=== PATIENT | male | born 1945 | race African-American/Black ===

== ENCOUNTER 2017-11-15 06:20 | Observation (INO) | payer MEDICARE ==
[2017-11-13 13:11] LABS: BASOPHILS % 0.5 % (0.0-1.0); EOSINOPHILS # (AUTO) 0.1 (0.0-0.4); EOSINOPHILS % 1.2 % (0.0-6.0); HEMATOCRIT 38.6 % (38.2-49.6); HEMOGLOBIN 12.9 g/dL (14.0-18.0); LYMPHOCYTES # (AUTO) 2.5 (1.0-3.2); LYMPHOCYTES % 38.5 % (18.0-39.1); MEAN CORPUSCULAR HGB CONC 33.4 g/dL (31-35); MEAN CORPUSCULAR VOLUME 86.7 fL (81-99); MONOCYTES # (AUTO) 0.6 (0.2-0.8); MONOCYTES % 8.9 % (4.4-11.3); NEUTROPHILS # (AUTO) 3.3 (2.1-6.9); NEUTROPHILS % 50.7 % (38.7-80.0); PLATELET COUNT 224 x10e3/uL (140-360); RED BLOOD COUNT 4.45 x10e6/uL (4.3-5.7); RED CELL DISTRIBUTION WIDTH 13.2 % (11.7-14.4)
[2017-11-13 13:25] LABS: INR 1.08; PROTHROMBIN TIME 13.2 seconds (11.9-14.5)
[2017-11-13 13:26] LABS: PARTIAL THROMBOPLASTIN TIME 30.6 seconds (23.8-35.5)
[2017-11-13 13:32] LABS: ANION GAP 13.9 mmol/L (8-16); BLOOD UREA NITROGEN 11 mg/dL (7-26); BUN/CREATININE RATIO 15 (6-25); CALCIUM 9.1 mg/dL (8.4-10.2); CARBON DIOXIDE 27 mmol/L (22-29); CHLORIDE 100 mmol/L (98-107); CREATININE, SERUM 0.71 mg/dL (0.72-1.25); EST GLOMERULAR FILTRATION RATE > 60 ML/MIN (60-); GLUCOSE 118 mg/dL (74-118); POTASSIUM 3.9 mmol/L (3.5-5.1); SODIUM 137 mmol/L (136-145)
--- NOTE | 2017-11-13 13:42 | Diagnostic Imaging Report ---
PROCEDURE:CHEST 2 VIEWS TECHNIQUE:PA and lateral chest INDICATION:Preoperative evaluation for lumbar spine surgery COMPARISON:None. FINDINGS: The lungs are inflated. No pleural effusion. Normal heart size and central vasculature. Mildly tortuous thoracic aorta. Intact skeleton. CONCLUSION: No acute abnormality. Dictated by: Abraham Zapata M.D. on 11/13/2017 at 13:45 Electronically approved by: Abraham Zapata M.D. on 11/13/2017 at 13:45
[~2017-11-15] VITALS: Ht 177.8 cm; Wt 78.1 kg
[~2017-11-15 06:20] MED LIST: ALFUZOSIN HCL10 MG PO; ATORVASTATIN CA40 MG PO; LISINOPRIL10 MG PO; METFORMIN HCL1000 MG PO
--- OUTSIDE RECORDS SUMMARY | 2017-11-15 06:23 | XMS REPORT ---
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 Allergies, Adverse Reactions, Alerts This patient has no known allergies or adverse reactions. Medications This patient has no known medications. Results Test Description Test Time Test Comments Text Results Atomic Results Result Comments CHEST 2 VIEWS [place] [address] Patient Name: KRISHNA FELIX MR #: [id number] : 1945 Age/Sex: 72/M Req #: [id number] Adm Physician: Ordered by: СВЕТЛАНА ARANA MD Report #: [id number] Location: OR Room/Bed: Procedure: [id number] DX/CHEST 2 VIEWS Exam Date: 11/13/17 Exam Time: 1313 REPORT STATUS: Signed PROCEDURE: CHEST 2 VIEWS TECHNIQUE: PA and lateral chest INDICATION: Preoperative evaluation for lumbar spine surgery COMPARISON: None. FINDINGS: The lungs are inflated. No pleural effusion. Normal heart size and central vasculature. Mildly tortuous thoracic aorta. Intact skeleton. CONCLUSION: No acute abnormality. Dictated by: Harvey Zapata M.D. on 11/13/2017 at 13:45 Electronically approved by: Harvey Zapata M.D. on 11/13/2017 at 13: 45 Dictated By: HARVEY ZAPATA MD [id number] Transcribed By: RENATO on 11/13/17 1342 COPY TO: СВЕТЛАНА ARANA MD
[2017-11-15] MEDS ORDERED: THROMBIN FOR SOLN 5,000 UNIT VIAL ONE (06:38)
[2017-11-15] MEDS ORDERED: GELATIN SPONGE SZ 100 ONE (06:38)
[2017-11-15] MEDS ORDERED: BACITRACIN 50,000 UNIT VIAL ONE (06:38)
[2017-11-15] MEDS ORDERED: BUPIVACAINE 0.5%/EPI 30 ML SDV INJ ONE (06:38)
[2017-11-15] MEDS ORDERED: ACETAMINOPHEN 1000 MG/100 ML 100 ML IV ONE (06:44)
[2017-11-15] MEDS ORDERED: LIDOCAINE HCL (LTA) 4 ML SOLN ONE (06:44)
[2017-11-15] MEDS ORDERED: CEFAZOLIN SOD 1 GM VIAL ONE (07:03)
[2017-11-15] MEDS ORDERED: ONDANSETRON HCL INJ 2 MG/ML VIAL IV PRN (10:15)
[2017-11-15] MEDS ORDERED: ACETAMINOPHEN 325 MG TAB PO PRN (10:15)
[2017-11-15] MEDS ORDERED: HYDROMORPHONE 2MG/ML INJ IV PRN (10:15)
[2017-11-15] MEDS ORDERED: MORPHINE SULFATE 5 MG/ML VIAL IM PRN (10:15)
[2017-11-15] MEDS ORDERED: OXYCODONE/ACETAMINOPHEN 5-325 1 EACH TABLET PO PRN (10:15)
[2017-11-15] MEDS ORDERED: CEPACOL SORE THROAT LOZENGES PO PRN (10:15)
[2017-11-15] MEDS ORDERED: PROMETHAZINE HCL (IM) 25 MG/ML VIAL IM PRN (10:15)
[2017-11-15] MEDS ORDERED: CARISOPRODOL 350 MG TAB PO PRN (10:15)
[2017-11-15] MEDS ORDERED: MAGNESIUM/ALUMINUM/SIMETHICONE 30 ML UDC PO PRN (10:15)
[2017-11-15] MEDS: LACTATED RINGER'S 1,000 ML IV SCH ×2 (11:23→17:20)
[2017-11-15 11:35] VITALS: BP 122/69
[2017-11-15 12:07] VITALS: BP 122/69
--- NOTE | 2017-11-15 12:21 | Operative Report ---
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 PROCEDURES: Right L4-5 laminotomy, medial facetectomy, microsurgical lateral recess decompression, and microsurgical diskectomy, [id number]. ANESTHESIA: General. INDICATIONS: The patient is a 72-year-old man who presents with right L4-5 lateral recess stenosis due to facet and ligamentous hypertrophy and a broad-based chronic disk herniation symptomatic with L5 radiculopathy and unilateral neurogenic claudication. The patient was taken to the operating room for microsurgical lateral recess decompression. PROCEDURE: After the induction of general anesthesia, the patient was placed on the operating table in prone position over a Jeff frame. The lumbar region was prepped and draped in sterile fashion. A preoperative x-ray was obtained, and a small midline incision was created. The lumbar fascia was opened to the right of midline, and a subperiosteal dissection was carried out to expose the right side of the L4 and L5 laminae and the medial aspect of the facet joint. A 2nd x-ray confirmed correct localization. The operating microscope was brought in. A high-speed drill equipped with a francisco bur was used to drill the inferior aspect of the lamina of L4, the medial aspect of the L4-5 facet joint and the superior rim of the lamina of L5. The ligamentum flavum was resected. The ligamentum flavum was markedly hypertrophic and was compressing the L5 nerve root against the subligamentous disk herniation. After the ligamentum flavum was resected, the L5 nerve root was retracted medially and the annulus of the disk was incised with a number 11 blade. The subligamentous disk herniation was retrieved and removed with a micro ball probe. The loose contents of the L4-5 disk were evacuated with curettes and pituitary rongeurs. Excellent decompression was thus achieved. The wound was irrigated with Bacitracin solution. Meticulous hemostasis was secured. The retractor was removed. The lumbar fascia was closed with 0 Vicryl sutures. Subcutaneous layer was closed with 2-0 Vicryl sutures. The skin was closed with 3-0 Monocryl sutures in subcuticular fashion. Steri-Strips and a dressing were applied. The patient was awakened, extubated and taken to the postanesthesia care unit in stable condition. No intraoperative complications were encountered. Estimated blood loss 10 mL. Job#: [id number] EV
[2017-11-15 13:43] VITALS: BP 122/69
[2017-11-15] MEDS ORDERED: CEFAZOLIN SOD 1 GM/NS 50ML 50 ML IV SCH (14:00)
[2017-11-15 15:23] VITALS: BP 126/69
[2017-11-15] MEDS: CEFAZOLIN SOD 1 GM VIAL IV SCH (16:36)
[2017-11-15] MEDS ORDERED: SEVOFLURANE INHAL SOLN 250 ML PEN BTL ONE (18:01)
[2017-11-15] MEDS ORDERED: DEXAMETHASONE SOD PHOS INJ 4 MG/ML VIAL ONE (18:01)
[2017-11-15] MEDS ORDERED: LIDOCAINE HCL 2% LOCAL INJ 5 ML SDV VIAL INJ ONE (18:01)
[2017-11-15] MEDS ORDERED: PROPOFOL IV EMULSION 10 MG/ML 20 ML VIAL ONE (18:01)
[2017-11-15] MEDS ORDERED: ROCURONIUM BROMIDE 10 MG/ML 5ML VIAL ONE (18:01)
[2017-11-15] MEDS ORDERED: EPHEDRINE SULFATE INJ 50 MG/10 ML SYR ONE (18:01)
[2017-11-15] MEDS ORDERED: LIDOCAINE HCL 2% JELLY 5 ML TUBE ONE (18:01)
[2017-11-15] MEDS ORDERED: ONDANSETRON HCL INJ 2 MG/ML VIAL ONE (18:01)
[2017-11-15] MEDS ORDERED: MIDAZOLAM HCL 2 MG/2 ML VIAL ONE (18:25)
[2017-11-15] MEDS ORDERED: FENTANYL CITRATE/PF 100MCG/2 ML INJ ONE (18:25)
[2017-11-15 20:00] VITALS: BP 125/62
[2017-11-15] MEDS ORDERED: METFORMIN HCL 500 MG TAB PO SCH (21:00)
[2017-11-15] MEDS ORDERED: ATORVASTATIN 40 MG TAB PO SCH (21:00)
[2017-11-15] MEDS ORDERED: ZOLPIDEM TARTRATE 5 MG TAB PO PRN (21:00)
[2017-11-16] VITALS: BP 104/61
[2017-11-16] MEDS: CEFAZOLIN SOD 1 GM VIAL IV SCH ×2 (00:28→08:54)
[2017-11-16] MEDS: LACTATED RINGER'S 1,000 ML IV SCH (02:46)
[2017-11-16 04:00] VITALS: BP 136/75
[2017-11-16 08:00] VITALS: BP 119/70
[2017-11-16] MEDS ORDERED: METFORMIN HCL 500 MG TAB PO SCH (08:00)
[2017-11-16] MEDS ORDERED: ALFUZOSIN HCL 10 MG PO SCH (09:00)
[2017-11-16] MEDS ORDERED: NON-FORMULARY MEDICATION (Atorvastatin Calcium 40 MG) PO SCH (09:00)
[2017-11-16] MEDS ORDERED: NON-FORMULARY MEDICATION (Metformin Hcl 1,000 MG) PO SCH (09:00)
[2017-11-16] MEDS ORDERED: LISINOPRIL 10 MG TAB PO SCH (09:00)
== END 2017-11-16 09:22 | disposition home or self-care (01) ==
LOC: OR 06:20 → IMCU 10:30
PROVIDERS: ADMIT Neurological Surgery; ATTEND Neurological Surgery
DX: M48.062 Spinal stenosis, lumbar region with neurogenic claudication (principal); M54.16 Radiculopathy, lumbar region; I10 Essential (primary) hypertension; E78.5 Hyperlipidemia, unspecified
CPT/HCPCS: 36415 ×3; 63047; 71046; 72020; 80048; 82948 ×2; 85025; 85610; 85730; 86850; 86900; 88304; 93005; G0378 ×2; J0690 ×2; J1100; J2001 ×2; J2250; J2405; J2270

== ENCOUNTER → 2018-08-19 | Outpatient (CLI) | payer MEDICARE ==
--- NOTE | 2018-08-19 16:20 | Diagnostic Imaging Report ---
RIGHT SHOULDER - 2 Images HISTORY: Pain COMPARISON: None available. FINDINGS: Bones: No acute displaced fracture. A 1 x 0.2 cm calcific density projects adjacent to the superior glenoid. Joints: Mild widening of the acromial clavicular joint, 1.1 cm. Soft tissues: The soft tissues appear unremarkable. IMPRESSION: 1. Age-indeterminate widening of the acromioclavicular joint, correlate for focal point tenderness and for history of trauma. 2. Chronic appearing small avulsion fracture projects adjacent to the superior glenoid. Signed by: Dr. Viktor Wood D.O., M.M.M. on 08/19/2018 4:16 PM
== END ==
LOC: RAD 15:23
DX: M25.511 Pain in right shoulder (principal)

== ENCOUNTER 2024-03-27 09:51 | Inpatient (IN) | payer MEDICARE ==
[2024-03-24 08:50] LABS: BASOPHILS % 0.6 % (0.0-1.0); EOSINOPHILS # (AUTO) 0.1 (0.0-0.4); EOSINOPHILS % 2.5 % (0.0-6.0); HEMATOCRIT 39.4 % (38.2-49.6); HEMOGLOBIN 12.9 g/dL (14.0-18.0); LYMPHOCYTES # (AUTO) 1.9 (1.0-3.2); LYMPHOCYTES % 35.9 % (18.0-39.1); MEAN CORPUSCULAR HEMOGLOBIN 29.7 pg (28-32); MEAN CORPUSCULAR HGB CONC 32.7 g/dL (31-35); MEAN CORPUSCULAR VOLUME 90.8 fL (81-99); MONOCYTES # (AUTO) 0.4 (0.2-0.8); MONOCYTES % 8.5 % (4.4-11.3); NEUTROPHILS # (AUTO) 2.7 (2.1-6.9); NEUTROPHILS % 52.3 % (38.7-80.0); PLATELET COUNT 266 x10e3/uL (140-360); RED BLOOD COUNT 4.34 x10e6/uL (4.3-5.7); RED CELL DISTRIBUTION WIDTH 12.7 % (11.7-14.4); WHITE BLOOD COUNT 5.18 x10e3/uL (4.8-10.8)
[2024-03-24 09:22] LABS: ALBUMIN 3.4 g/dL (3.5-5.0); ALBUMIN/GLOBULIN RATIO 0.9 (0.8-2.0); ANION GAP 14.3 mmol/L (8-16); BILIRUBIN,TOTAL 0.7 mg/dL (0.2-1.2); CALCIUM 9.1 mg/dL (8.4-10.2); CREATININE, SERUM 0.78 mg/dL (0.72-1.25); POTASSIUM 4.3 mmol/L (3.5-5.1)
[~2024-03-27] VITALS: Ht 177.8 cm; Wt 72.6 kg
[~2024-03-27 09:51] MED LIST changes: +ASPIRIN81 MG PO; +ATENOLOL50 MG PO; +TESTOSTERO100 MG/1 M INJ; +VIT B12 PO; +VIT D3 PO
[2024-03-27] MEDS ORDERED: FENTANYL CITRATE/PF 100MCG/2 ML INJ ONE (10:41)
[2024-03-27] MEDS: LACTATED RINGER'S 1,000 ML ONE (10:48)
[2024-03-27] MEDS ORDERED: IOPAMIDOL 610MG/1ML 300 MG/ML VIAL IV ONE (11:46)
[2024-03-27] MEDS ORDERED: BUPIVACAINE HCL 0.5% INJ 30 ML VIAL INJ ONE (12:30)
[2024-03-27] MEDS ORDERED: BUPIVACAINE 0.5%/EPI 30 ML SDV INJ ONE (12:30)
[2024-03-27] MEDS ORDERED: LIDOCAINE HCL 2% LOCAL INJ 5 ML SDV VIAL INJ ONE (12:43)
[2024-03-27] MEDS ORDERED: KETOROLAC TROMETHAMINE 30 MG/ML VIAL ONE (12:43)
[2024-03-27] MEDS ORDERED: ONDANSETRON HCL INJ 2MG/ML 2ML 2 MG/ML VIAL ONE (12:43)
[2024-03-27] MEDS ORDERED: ROCURONIUM BROMIDE 10 MG/ML 5ML VIAL IV ONE (12:43)
[2024-03-27] MEDS ORDERED: SEVOFLURANE INHAL SOLN 250 ML PEN BTL ONE (12:43)
[2024-03-27] MEDS ORDERED: PROPOFOL IV EMULSION 10 MG/ML 20 ML VIAL ONE (12:43)
[2024-03-27] MEDS ORDERED: METOCLOPRAMIDE HCL 10 MG/2ML VIAL ONE (12:43)
[2024-03-27] MEDS ORDERED: SUGAMMADEX SODIUM 200 MG/2 ML VIAL IV ONE (12:43)
[2024-03-27] MEDS ORDERED: ESMOLOL HCL 100MG/10ML 10 MG/ML VIAL ONE (12:43)
[2024-03-27] MEDS ORDERED: ACETAMINOPHEN 1000 MG/100 ML IV ONE (12:43)
[2024-03-27] MEDS ORDERED: ACETAMINOPHEN 1000 MG/100 ML 100 ML IV ONE (13:19)
[2024-03-27] MEDS ORDERED: HYDROMORPHONE 1MG/1ML INJ ONE (14:02)
[2024-03-27] MEDS: SODIUM CHLORIDE 0.9% 1000ML 1,000 ML IV SCH (17:16)
[2024-03-27] MEDS: CEFTRIAXONE 2 GM in SODIUM CHLORIDE 0.9% 100 ML IV SCH (17:16)
[2024-03-27] MEDS: ROPIVACAINE 246.25 MG, EPINEPHRINE HCL 1:1000 1ML 0.5 MG, CLONIDINE HCL 0.08 MG, KETORO... INJ ONE (17:17)
[2024-03-27] MEDS: INSULIN REGULAR, HUMAN 100 UNIT/1 ML SQ SCH (17:17)
[2024-03-27 17:30] VITALS: BP 115/68; PULSE 68; RESP 20; TEMP 97.9; O2SAT 100
[2024-03-27 17:49] VITALS: BP 115/68; PULSE 68; RESP 20; TEMP 97.9; O2SAT 100
[2024-03-27 18:26] VITALS: BP 115/68; PULSE 68; RESP 20; TEMP 97.9; O2SAT 100
[2024-03-27 19:20] VITALS: PULSE 68; RESP 18; O2SAT 100
[2024-03-27 20:00] VITALS: BP 132/68; PULSE 70; RESP 16; TEMP 97.2; O2SAT 100
[2024-03-27] MEDS: ATENOLOL 50 MG TAB PO SCH (20:57)
[2024-03-27 21:00] VITALS: BP 132/68; PULSE 70; RESP 16; TEMP 97.2; O2SAT 100
[2024-03-28] VITALS (10 sets, daily range): BP systolic 135–161; BP diastolic 60–73; PULSE 59–71; RESP 16–18; TEMP 97.3–98.4; O2SAT 98–100
[2024-03-28] MEDS: ONDANSETRON HCL INJ 2MG/ML 2ML 2 MG/ML VIAL IV PRN (04:42)
[2024-03-28 07:00] LABS: BASOPHILS % 0.1 % (0.0-1.0); EOSINOPHILS % 0.1 % (0.0-6.0); HEMATOCRIT 36.2 % (38.2-49.6); HEMOGLOBIN 11.7 g/dL (14.0-18.0); LYMPHOCYTES # (AUTO) 1.2 (1.0-3.2); LYMPHOCYTES % 14.7 % (18.0-39.1); MEAN CORPUSCULAR HEMOGLOBIN 29.3 pg (28-32); MEAN CORPUSCULAR HGB CONC 32.3 g/dL (31-35); MEAN CORPUSCULAR VOLUME 90.7 fL (81-99); MONOCYTES # (AUTO) 0.5 (0.2-0.8); MONOCYTES % 5.8 % (4.4-11.3); NEUTROPHILS # (AUTO) 6.6 (2.1-6.9); NEUTROPHILS % 79.1 % (38.7-80.0); PLATELET COUNT 228 x10e3/uL (140-360); RED BLOOD COUNT 3.99 x10e6/uL (4.3-5.7); RED CELL DISTRIBUTION WIDTH 12.6 % (11.7-14.4)
[2024-03-28 07:24] LABS: ANION GAP 15.1 mmol/L (8-16); BILIRUBIN,TOTAL 0.8 mg/dL (0.2-1.2); CALCIUM 8.4 mg/dL (8.4-10.2); CREATININE, SERUM 0.71 mg/dL (0.72-1.25); POTASSIUM 4.1 mmol/L (3.5-5.1); TOTAL PROTEIN 5.9 g/dL (6.5-8.1)
[2024-03-28] MEDS: ALFUZOSIN HCL 10 MG TAB.ER.24H PO SCH (08:24)
[2024-03-28] MEDS: ACETAMINOPHEN 1000 MG/100 ML IV PRN (08:31)
[2024-03-28] MEDS: HYDROMORPHONE 1MG/1ML INJ IV PRN (15:17)
[2024-03-28] MEDS: HYDROCODONE/APAP 7.5MG-325MG 1 EA TAB PO PRN (16:33)
[2024-03-29] VITALS (10 sets, daily range): BP systolic 125–142; BP diastolic 67–76; PULSE 55–68; RESP 16–19; TEMP 98.1–98.6; O2SAT 98–99
[2024-03-29] MEDS: INSULIN REGULAR, HUMAN 100 UNIT/1 ML SQ SCH (07:30)
[2024-03-29 08:40] LABS: BASOPHILS % 0.3 % (0.0-1.0); EOSINOPHILS # (AUTO) 0.1 (0.0-0.4); EOSINOPHILS % 1.1 % (0.0-6.0); HEMATOCRIT 36.9 % (38.2-49.6); HEMOGLOBIN 11.8 g/dL (14.0-18.0); LYMPHOCYTES # (AUTO) 1.5 (1.0-3.2); LYMPHOCYTES % 22.3 % (18.0-39.1); MEAN CORPUSCULAR HEMOGLOBIN 29.4 pg (28-32); MEAN CORPUSCULAR VOLUME 91.8 fL (81-99); MONOCYTES # (AUTO) 0.5 (0.2-0.8); MONOCYTES % 7.8 % (4.4-11.3); NEUTROPHILS # (AUTO) 4.5 (2.1-6.9); NEUTROPHILS % 68.2 % (38.7-80.0); PLATELET COUNT 223 x10e3/uL (140-360); RED BLOOD COUNT 4.02 x10e6/uL (4.3-5.7); RED CELL DISTRIBUTION WIDTH 12.8 % (11.7-14.4); WHITE BLOOD COUNT 6.55 x10e3/uL (4.8-10.8)
[2024-03-29 09:16] LABS: ALBUMIN 2.9 g/dL (3.5-5.0); ANION GAP 11.9 mmol/L (8-16); BILIRUBIN,TOTAL 0.7 mg/dL (0.2-1.2); CALCIUM 8.6 mg/dL (8.4-10.2); CREATININE, SERUM 0.67 mg/dL (0.72-1.25); POTASSIUM 3.9 mmol/L (3.5-5.1); TOTAL PROTEIN 5.9 g/dL (6.5-8.1)
[2024-03-30] VITALS (7 sets, daily range): BP systolic 121–141; BP diastolic 69–81; PULSE 54–63; RESP 16–20; TEMP 98–98.6; O2SAT 98–99
[2024-03-30 07:36] LABS: BASOPHILS % 0.4 % (0.0-1.0); EOSINOPHILS # (AUTO) 0.2 (0.0-0.4); HEMATOCRIT 37.5 % (38.2-49.6); HEMOGLOBIN 11.7 g/dL (14.0-18.0); LYMPHOCYTES # (AUTO) 1.6 (1.0-3.2); LYMPHOCYTES % 29.2 % (18.0-39.1); MEAN CORPUSCULAR HEMOGLOBIN 29.1 pg (28-32); MEAN CORPUSCULAR HGB CONC 31.2 g/dL (31-35); MEAN CORPUSCULAR VOLUME 93.3 fL (81-99); MONOCYTES # (AUTO) 0.5 (0.2-0.8); MONOCYTES % 8.4 % (4.4-11.3); NEUTROPHILS # (AUTO) 3.1 (2.1-6.9); NEUTROPHILS % 58.4 % (38.7-80.0); PLATELET COUNT 214 x10e3/uL (140-360); RED BLOOD COUNT 4.02 x10e6/uL (4.3-5.7); RED CELL DISTRIBUTION WIDTH 12.6 % (11.7-14.4); WHITE BLOOD COUNT 5.37 x10e3/uL (4.8-10.8)
[2024-03-30 08:00] LABS: ALBUMIN 2.9 g/dL (3.5-5.0); ANION GAP 13.9 mmol/L (8-16); BILIRUBIN,TOTAL 0.9 mg/dL (0.2-1.2); CALCIUM 8.8 mg/dL (8.4-10.2); CREATININE, SERUM 0.68 mg/dL (0.72-1.25); POTASSIUM 3.9 mmol/L (3.5-5.1); TOTAL PROTEIN 5.8 g/dL (6.5-8.1)
[2024-03-30] MEDS: DOCUSATE SODIUM 100 MG CAP PO SCH (17:39)
[2024-03-30] MEDS: SENNOSIDES 8.6 MG TAB PO SCH (17:39)
[2024-03-31] VITALS (7 sets, daily range): BP systolic 112–136; BP diastolic 68–94; PULSE 55–69; RESP 17–18; TEMP 97.8–98.7; O2SAT 94–100
[2024-03-31 05:41] LABS: BASOPHILS % 0.4 % (0.0-1.0); EOSINOPHILS # (AUTO) 0.2 (0.0-0.4); EOSINOPHILS % 3.4 % (0.0-6.0); HEMATOCRIT 36.2 % (38.2-49.6); HEMOGLOBIN 11.6 g/dL (14.0-18.0); LYMPHOCYTES # (AUTO) 1.7 (1.0-3.2); LYMPHOCYTES % 35.5 % (18.0-39.1); MEAN CORPUSCULAR HEMOGLOBIN 29.6 pg (28-32); MEAN CORPUSCULAR VOLUME 92.3 fL (81-99); MONOCYTES # (AUTO) 0.4 (0.2-0.8); NEUTROPHILS # (AUTO) 2.5 (2.1-6.9); NEUTROPHILS % 52.5 % (38.7-80.0); PLATELET COUNT 207 x10e3/uL (140-360); RED BLOOD COUNT 3.92 x10e6/uL (4.3-5.7); RED CELL DISTRIBUTION WIDTH 12.6 % (11.7-14.4); WHITE BLOOD COUNT 4.73 x10e3/uL (4.8-10.8)
[2024-03-31 06:16] LABS: ALBUMIN 2.8 g/dL (3.5-5.0); ANION GAP 11.6 mmol/L (8-16); BILIRUBIN,TOTAL 0.7 mg/dL (0.2-1.2); CALCIUM 8.8 mg/dL (8.4-10.2); CREATININE, SERUM 0.67 mg/dL (0.72-1.25); MAGNESIUM 1.5 MG/DL (1.3-2.1); POTASSIUM 3.6 mmol/L (3.5-5.1); TOTAL PROTEIN 5.7 g/dL (6.5-8.1)
[2024-03-31 06:39] LABS: FERRITIN 250.72 ng/mL (21.81-274.66)
== END 2024-03-31 18:50 | disposition home or self-care (01) | DRG 415 ==
LOC: OR 09:51 → PACU V 15:18 → MED/SURG 16:30
PROVIDERS: ADMIT Surgery; ATTEND Surgery
PROC: 0FT40ZZ Resection of Gallbladder, Open Approach (ICD-10-PCS; principal; 2024-03-27 12:35)
PROC: 0FN44ZZ Release Gallbladder, Percutaneous Endoscopic Approach (ICD-10-PCS; 2024-03-27 12:35)
DX: K82.8 Other specified diseases of gallbladder (principal); K80.10 Calculus of gallbladder with chronic cholecystitis without obstruction; E11.9 Type 2 diabetes mellitus without complications; I10 Essential (primary) hypertension; N40.0 Benign prostatic hyperplasia without lower urinary tract symptoms; E78.5 Hyperlipidemia, unspecified; D64.9 Anemia, unspecified; Z79.4 Long term (current) use of insulin; Z53.31 Laparoscopic surgical procedure converted to open procedure
CPT/HCPCS: 36415; 71046; 80053; 82607; 82728; 82948; 83540; 83735; 84466; 85025; 88304; 93005; 93925; 94799; C1766; J0171; J0690; J0696; J1171; J1885; J2003; J2405; J2470; J2765; J2795; J7030; J7050